=== PATIENT | female | born 1990 | race African-American/Black ===

== ENCOUNTER 2017-02-17 17:08 | Observation (INO) | payer MEDICAID ==
[~2017-02-17] VITALS: Ht 167.6 cm; Wt 81.6 kg
[2017-02-17] MEDS ORDERED: PREN1TAB78 PO (19:00)
[2017-02-17] MEDS ORDERED: FOLI-43 PO (19:00)
[2017-02-17] MEDS ORDERED: FERR325T6 PO (19:00)
== END 2017-02-17 21:30 | disposition home or self-care (01) ==
LOC: L&D 17:08
PROVIDERS: ADMIT Obstetrics & Gynecology; ATTEND Obstetrics & Gynecology
DX: O26.892 Other specified pregnancy related conditions, second trimester (principal); R10.30 Lower abdominal pain, unspecified; M54.9 Dorsalgia, unspecified; Z3A.26 26 weeks gestation of pregnancy; W10.9XXA Fall (on) (from) unspecified stairs and steps, initial encounter; Y93.89 Activity, other specified; Y92.59 Other trade areas as the place of occurrence of the external cause; Y99.8 Other external cause status
CPT/HCPCS: 76805; 99281; G0378